=== PATIENT | female | born 1970 | race Caucasian/White ===

== ENCOUNTER 2017-07-31 14:20 | Observation (INO) | payer BC ==
[~2017-07-31] VITALS: Ht 160 cm; Wt 87.6 kg
[~2017-07-31 14:20] MED LIST: ACYCLOVIR200 MG PO; ALEVE220 M1 PO; AMITRIPTYLINE H10 MG PO; AMITRIPTYLINE H50 MG PO; ASPIRIN81 MG PO; Asmanex INH; BUPROPION HCL100 MG PO; CEFDINIR300 MG PO; CHANTIX PO; DOXYCYCLINE HY100 MG PO; ELAVIL PO; ESTRACE1 MG PO; FARXIGA PO; FLOVENT HFA12 GM INH; FUROSEMIDE40 MG PO; LASIX40 MG PO; LEVAQUIN500 MG PO; LYRICA100 MG PO; LYRICA200 MG PO; LYRICA50 MG PO; METAXALONE800 MG PO; METOPROLOL SUCC25 MG PO; METOPROLOL TART50 MG PO; MONTELUKAST SOD10 MG PO; MULTI-VITAMIN1 EACH PO; MYCOPHENOLATE500 MG PO; NEURONTIN100 MG PO; NEURONTIN400 MG PO; NEXIUM40 MG PO; NORCO 10-325 T1 EACH PO; PHENERGAN SUPP25 MG PO; PHENERGAN SUPP25 MG RC; POTASSIUM CHLO20 ME1 PO; PREDNISONE20 MG PO; PRILOSEC40 MG PO; PROAIR HFA INH8.5 GM INH; QUESTRAN PACKET4 GM PO; RANITIDINE HCL150 M1 PO; REGLAN10 MG PO; SINGULAIR10 MG PO; SKELAXIN800 MG PO; SOMA350 MG PO; SPIRIVA18 MCG INH; SPIRONOLACTONE25 MG PO; SYMBICORT 16010.2 GM INH; TYLENOL WITH C1 EAC1 PO; VALIUM10 MG PO; VANCOMYCIN HCL500 MG PO; ZOFRAN8 MG PO; [UNRECOGNIZED DRUG - OTHER] IV
[2017-07-31] MEDS ORDERED: PANTOPRAZOLE SO40 MG PO (14:45)
[2017-07-31] MEDS ORDERED: NORCO 10-325 T1 EACH PO (14:45)
[2017-07-31] MEDS ORDERED: RANITIDINE HCL300 M1 PO (14:45)
[2017-07-31] MEDS ORDERED: SODIUM CHLORIDE 0.9% 1000ML 1,000 ML IV STA (14:52)
[2017-07-31 15:05] LABS: BASOPHILS # (AUTO) 0.1 (0.0-0.1); BASOPHILS % 0.4 % (0.0-1.0); EOSINOPHILS # (AUTO) 0.2 (0.0-0.4); EOSINOPHILS % 0.9 % (0.0-6.0); HEMATOCRIT 37.3 % (34.2-44.1); LYMPHOCYTES % 17.5 % (18.0-39.1); MEAN CORPUSCULAR HGB CONC 32.2 g/dL (31-35); MEAN CORPUSCULAR VOLUME 83.8 fL (81-99); MONOCYTES # (AUTO) 1.4 (0.2-0.8); MONOCYTES % 8.2 % (4.4-11.3); NEUTROPHILS # (AUTO) 12.2 (2.1-6.9); NEUTROPHILS % 72.2 % (38.7-80.0); PLATELET COUNT 408 x10e3/uL (140-360); RED BLOOD COUNT 4.45 x10e6/uL (3.6-5.1); RED CELL DISTRIBUTION WIDTH 17.8 % (11.7-14.4)
[2017-07-31 15:25] LABS: ALANINE AMINOTRANSFERASE 11 IU/L (0-55); ALBUMIN/GLOBULIN RATIO 0.7 (0.8-2.0); ALKALINE PHOSPHATASE 138 IU/L (40-150); ANION GAP 15.3 mmol/L (8-16); BLOOD UREA NITROGEN 6 mg/dL (7-26); BUN/CREATININE RATIO 7 (6-25); CALCIUM 8.7 mg/dL (8.4-10.2); CARBON DIOXIDE 18 mmol/L (22-29); CHLORIDE 109 mmol/L (98-107); CREATININE, SERUM 0.82 mg/dL (0.57-1.11); EST GLOMERULAR FILTRATION RATE > 60 ML/MIN (60-); GLUCOSE 89 mg/dL (74-118); POTASSIUM 3.3 mmol/L (3.5-5.1); SODIUM 139 mmol/L (136-145)
--- NOTE | 2017-07-31 15:49 | Diagnostic Imaging Report ---
PROCEDURE: X-RAY CHEST, TWO VIEWS COMPARISON: Chest x-ray 03/04/17, chest x-ray 06/01/15 INDICATIONS: COUGH X 4 WEEKS FINDINGS: LUNGS: Chain sutures in the right upper lobe are stable. No associated soft tissue mass. Right PICC line has been removed. No new findings in the left lung. PLEURA: No effusions or pneumothorax. HEART \T\ MEDIASTINUM: The cardiomediastinal silhouette is normal. No hilar lymphadenopathy. Calcified hilar lymph nodes are stable BONES \T\ SOFT TISSUES: No focal osseous lesions. The soft tissues are unremarkable. CONCLUSION: Stable chest. No active disease. Dictated by: Mp Cho M.D. on 07/31/2017 at 15:58 Electronically approved by: Mp Cho M.D. on 07/31/2017 at 15:58
[2017-07-31] MEDS ORDERED: SODIUM CHLORIDE FLUSH 10 ML SYR INJ PRN (16:15)
[2017-07-31 16:39] LABS: STREPTOCOCCUS GRP A ANTIGEN NEGATIVE (NEGATIVE)
[2017-07-31] MEDS: VANCOMYCIN 1GM/NS 250 ML 250 ML IV SCH (16:49)
[2017-07-31] MEDS: HYDROMORPHONE 2MG/ML INJ IV PRN ×3 (16:49→23:10)
[2017-07-31] MEDS: ONDANSETRON HCL INJ 2 MG/ML VIAL IV PRN ×2 (16:50→23:10)
[2017-07-31 16:51] LABS: INFLUENZAE A&B ANTIGEN (RAPID) NEGATIVE (NEGATIVE)
[2017-07-31 17:55] VITALS: BP 110/59
[2017-07-31 18:12] VITALS: BP 110/59
[2017-07-31] MEDS: OFLOXACIN 0.3% (OTIC SOL) 5 ML BTL OT SCH (18:23)
[2017-07-31 20:15] VITALS: BP 104/58
[2017-07-31] MEDS ORDERED: NON-FORMULARY MEDICATION (Ondansetron Hcl (Zofran) 8 MG) PO PRN (20:30)
[2017-07-31] MEDS ORDERED: ALBUTEROL SULFATE HFA 8GM INHALATION AEROSOL INH PRN (20:30)
[2017-07-31] MEDS ORDERED: HYDROCODONE/APAP 10MG-325MG TAB PO PRN (20:30)
[2017-07-31] MEDS ORDERED: ONDANSETRON HCL 4 MG ORAL DISINTEGRATING TAB PO PRN ×2 (20:45)
--- NOTE | 2017-07-31 20:46 | Diagnostic Imaging Report ---
History:Pressure in mastoids, fever. Comparison studies:None Technique: Axial, coronal and sagittal images through the temporal bones. Intravenous contrast: None Findings: Right: External auditory canal: Clear and patent Tympanic membrane: Barely visualized and unremarkable. Middle ear and mastoid cavities: Clear. Mastoid air cells: Mild mucosal thickening and partial opacification. Ossicles: The malleus, incus and stapes are grossly intact. Cochlea, vestibule, internal acoustic canals: Grossly intact. Semicircular canals: Grossly intact. Not dehiscent. Endolymphatic duct: Normal in size. No dilated. Petrous apex: Unremarkable, not aerated. Facial canal: No abnormalities in the labyrinthine, tympanic or mastoid segments. Left: External auditory canal: Clear and patent Tympanic membrane: Barely visualized and unremarkable. Middle ear and mastoid cavities: Clear. Mastoid air cells: Mild mucosal thickening and partial opacification Ossicles: The malleus, incus and stapes are grossly intact. Cochlea, vestibule, internal acoustic canals: Grossly intact. Semicircular canals: Grossly intact. Not dehiscent. Endolymphatic duct: Normal in size. No dilated. Petrous apex: Unremarkable, not aerated. Facial canal: No abnormalities in the labyrinthine, tympanic or mastoid segments. IMPRESSION: Right temporal bone: 1. Mild nonspecific mastoid air cells inflammatory changes. Left temporal bone: 1. Mild nonspecific mastoid air cells inflammatory changes Signed by: DR Donta Soto M.D. on 07/31/2017 8:43 PM
[2017-07-31] MEDS ORDERED: FAMOTIDINE 20 MG TAB PO SCH (21:00)
[2017-07-31] MEDS ORDERED: GABAPENTIN 100 MG CAP PO SCH (21:00)
[2017-07-31] MEDS ORDERED: NON-FORMULARY MEDICATION (Ranitidine Hcl 300 MG) PO SCH (21:00)
[2017-07-31] MEDS ORDERED: METAXALONE 800 MG TAB PO SCH (21:00)
[2017-07-31] MEDS: DIAZEPAM 5 MG TAB PO SCH (21:43)
[2017-07-31] MEDS: GABAPENTIN 400 MG CAP PO SCH (21:43)
[2017-07-31] MEDS: METHOCARBAMOL 750 MG TAB PO SCH (21:43)
[2017-07-31] MEDS: METOCLOPRAMIDE HCL 10 MG TAB PO SCH (21:43)
[2017-07-31] MEDS: SIMETHICONE 80 MG CHEW PO PRN (21:57)
[2017-07-31] MEDS ORDERED: NON-FORMULARY MEDICATION (Diazepam (Valium) 10 MG) PO SCH (22:00)
[2017-07-31 23:47] VITALS: BP 104/58
--- NOTE | 2017-08-01 00:53 | Consultation ---
DATE OF CONSULTATION: July 31, 2017 DATE OF : 1970 HISTORY OF PRESENT ILLNESS: I was kindly asked to see this 47-year-old woman known to me from previous inpatient and outpatient evaluation and treatment for evaluation of a 7-day history of bilateral ear pain. She reports 1 week ago, she developed left-sided bloody ear drainage and has bilateral ear pressure with sensation of fullness in her ears, as well as a sensation of swelling in her neck. She has a long history of previous otologic symptoms and her degree of symptoms in the past has been persistently out of proportion to the degree of pathology identified. 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 She denies nasal airway obstruction or facial pain or pressure at this time. Reports her primary symptoms of bilateral ear fullness and intermittent drainage from her left ear. PAST MEDICAL AND PAST SURGICAL HISTORY: Reviewed in the chart. PHYSICAL EXAMINATION: Right ear, the pinna is normal. There is no postauricular pain, swelling or tenderness. The external auditory canal was normal. The tympanic membrane is moderately scarred and moderately retracted and hypomobile. The left pinna is normal. The left postauricular area has no pain, swelling or tenderness. The external auditory canal has a superficial abrasion in the midportion of the canal. The tympanic membrane is scarred, mildly retracted, and hypomobile. Nasal examination shows normal nasal mucosa. The nasal septum is midline. Pharyngeal examination shows slight edema of the uvula and minimal postnasal drainage. There is no palpable cervical adenopathy. ASSESSMENT 1. Otalgia. 2. Chronic allergic rhinosinusitis. 3. Immunodeficiency. PLAN 1. CT scan of the temporal bone without contrast. 2. Topical therapy for the left ear. 3. Intranasal steroids. Job#: [id number] CQ
[2017-08-01] MEDS: HYDROMORPHONE 2MG/ML INJ IV PRN ×5 (02:30→15:22)
[2017-08-01 04:00] VITALS: BP 119/66
--- NOTE | 2017-08-01 05:00 | History and Physical ---
CHIEF COMPLAINT: Significant ear pain, immunosuppressed state. HISTORY: Mrs. Gasca is a pleasant 47-year-old female with significant ear pain. Patient well known to me. She is on immunosuppression medications times 2 for her chronic lung disease. Patient has been having multiple blood work recently in the clinic where she has leukocytosis. Due to leukocytosis and her history of C. difficile colitis, we are being cautious. We stopped mycophenolate 2 weeks ago. Prednisone was allowed to be restarted during the last week. Patient cites 7 days of worsening bilateral ear pain. She went to visit an outside doctor where leukocytosis was noted. She was recommended to go directly to the emergency room. Patient with additional immunodeficiency with IgG subclass abnormality. PAST MEDICAL HISTORY: Pathologic desquamative interstitial pneumonitis, history of uterine cancer in 2015, status post treatment, hypertension, in 1995 DVT, anxiety, chronic allergic rhinosinusitis, GERD, hyperlipidemia, gastroparesis. PAST SURGICAL HISTORY: Lithotripsy, cholecystectomy, appendectomy, tonsillectomy, adenoidectomy, surgical lung biopsy. MEDICATIONS: List reviewed per electronic record. ALLERGIES: LEVAQUIN, PENICILLIN, NSAIDS, IODINE. FAMILY HISTORY: Noncontributory to this condition. SOCIAL HISTORY: with no children. No alcohol. No drugs. No active smoking. She quit smoking in 2014. REVIEW OF SYSTEMS GENERAL: There is no weight changes. OPHTHALMOLOGIC: No double vision. HEENT: There is some exudate coming out of her left ear. ENDOCRINE: No thyroid disease. PULMONARY: No blood in her cough. CARDIAC: No heart attacks. GI: No constipation. : No blood in the urine. DERMATOLOGIC: No rash. NEUROLOGIC: No seizures. PHYSICAL EXAMINATION VITALS: Afebrile. Vital signs noted per electronic record. GENERAL: Weak in bed and slightly pale. HEENT: Normocephalic and atraumatic. NECK: Supple. Throat midline. LUNGS: Bilateral air entry. Few rare crackles. CARDIOVASCULAR: S1 and S2. No murmurs, rubs or gallops. ABDOMEN: Soft and nontender. EXTREMITIES: No clubbing. No cyanosis. There is no edema. INTEGUMENT: No rash. No purpura. LABS: White count 17, hematocrit 37 and platelets 408,000. Potassium 2.8, bicarbonate 18, creatinine 0.8. Albumin 3, globulin 4.1. Chest x-ray with clear lungs. CT of the ear showed bilateral inflammation of mastoids. IMPRESSION AND PLAN 1. Severe right otalgia and left otalgia. 2. Chronic allergic rhinosinusitis. 3. Leukocytosis, not otherwise specified. 4. 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 5. Pathologic desquamative interstitial pneumonitis. 6. Former smoker. 7. Hypertension. 8. History of deep venous thrombosis in 1995. At this time, will continue close followup. Patient will have sinus CT done. ENT consult made. We appreciate ENT's interventions. Patient will have close followup with initial antibiotics. Will decide if we can restart her immunosuppression agents. Of note, the outside CT of chest was recently worsening. Therefore, we still need to expedite the resumption of medicines when improved state. White count will continue to be followed. Check ESR and CRP for baseline. Continue follow up of allergic condition with Dr. Kimball of ENT. Job#: [id number] MD
[2017-08-01] MEDS: VANCOMYCIN 1GM/NS 250 ML 250 ML IV SCH (05:43)
[2017-08-01] MEDS: DIAZEPAM 5 MG TAB PO SCH ×2 (06:00→13:08)
--- NOTE | 2017-08-01 06:18 | Discharge Summary ---
DAHIANA SANCHEZ, LENGTH 0:3 JEFF HARRELL MD Job#: [id number] RI
[2017-08-01] MEDS: METHOCARBAMOL 750 MG TAB PO SCH ×2 (06:20→13:08)
[2017-08-01 08:35] VITALS: BP 107/68
[2017-08-01] MEDS: METOCLOPRAMIDE HCL 10 MG TAB PO SCH ×2 (08:41→14:15)
[2017-08-01] MEDS: OFLOXACIN 0.3% (OTIC SOL) 5 ML BTL OT SCH (08:41)
[2017-08-01] MEDS: GABAPENTIN 400 MG CAP PO SCH ×2 (08:41→14:15)
[2017-08-01] MEDS: ONDANSETRON HCL INJ 2 MG/ML VIAL IV PRN ×2 (08:42→15:22)
[2017-08-01] MEDS ORDERED: POTASSIUM CHLORIDE 20 MEQ TAB CR PO SCH (09:00)
[2017-08-01] MEDS ORDERED: PREGABALIN 75 MG CAP PO SCH (09:00)
[2017-08-01] MEDS ORDERED: FARXIGA 5 MG PO SCH ×2 (09:00)
[2017-08-01] MEDS ORDERED: METOPROLOL SUCCINATE 25 MG TAB XL PO SCH (09:00)
[2017-08-01] MEDS ORDERED: PANTOPRAZOLE SOD 40 MG TABEC PO SCH (09:00)
[2017-08-01] MEDS ORDERED: PREGABALIN 50 MG CAP PO SCH (09:00)
[2017-08-01] MEDS ORDERED: FLUTICASONE PROPIONATE 110MCG INH INH SCH (09:00)
[2017-08-01] MEDS: SIMETHICONE 80 MG CHEW PO PRN (09:20)
[2017-08-01 12:15] VITALS: BP 108/57
[2017-08-01] MEDS ORDERED: PREDNISONE20 MG PO (15:26)
[2017-08-01] MEDS ORDERED: OFLOXACIN 0.3% OT (15:26)
[2017-08-01 16:00] VITALS: BP 106/57
--- NOTE | 2017-08-02 09:48 | Discharge Summary ---
PRIMARY DIAGNOSIS: Severe otalgia. SECONDARY DIAGNOSES: Include 1. Chronic allergic rhinosinusitis. 2. Immunodeficiency with IgG subset deficiency. 3. Immunodeficiency due to coag medicines. 4. Pathologic desquamative interstitial pneumonitis on immunosuppression. 5. History of Clostridium difficile colitis, not recent. 6. History of uterine cancer 2016. 7. Hypertension. 8. Anxiety. 9. 1996 deep vein thrombosis. 10. Gastroesophageal reflux disease. 11. Hyperlipidemia. 12. Gastroparesis. Patient known to be immunosuppressed. She developed severe ear pains, mostly on the right side. Patient was initiated on treatment as possible infection in an immunosuppressed individual. She was sent to the emergency room where she came. Ear CT showed bilateral inflammation of mastoids but probably still mild. Patient continued on initial antibiotics. White count was 17,000. After observation, there was no high clinical appearance of a severe infection; so, we allowed the patient to go home on day number 2. She is well known to me, and she knows what kind of cautions she must maintain and how to contact my office. I notified her to restart the prednisone and mycophenolate due to her worsening lung disease per the recent CAT scan. Of note, patient as an outpatient had her mycophenolate stopped for a few months for some unknown reason to me, but she had restarted it. Unfortunately, the CAT scan showed some relapse of her DIP. Therefore, we have to push the immunosuppressants as she has little reserve and she is already on home oxygen at her age of 47. ACTIVITY: As tolerated. DIET: Low-salt diet. FOLLOWUP: Follow up with Dr. Curran, Dr. Kimball, Dr. Banda, other physicians. DISCHARGE MEDICATIONS: Please see the discharge medication record for details. Greater than 30 minutes spent on discharging the patient. JEFF CURRAN MD Job#: [id number] TINO
== END 2017-08-01 15:52 | disposition home or self-care (01) ==
LOC: ER 14:20 → IMCU 17:11
PROVIDERS: ADMIT Internal Medicine Critical Care Medicine; ATTEND Internal Medicine Critical Care Medicine
DX: H92.03 Otalgia, bilateral (principal); J20.9 Acute bronchitis, unspecified; J30.9 Allergic rhinitis, unspecified; D72.829 Elevated white blood cell count, unspecified; D80.3 Selective deficiency of immunoglobulin G [IgG] subclasses; Z87.891 Personal history of nicotine dependence; I10 Essential (primary) hypertension; Z86.718 Personal history of other venous thrombosis and embolism; J84.89 Other specified interstitial pulmonary diseases; K21.9 Gastro-esophageal reflux disease without esophagitis; K31.84 Gastroparesis; E78.5 Hyperlipidemia, unspecified; Z99.81 Dependence on supplemental oxygen; Z79.52 Long term (current) use of systemic steroids
CPT/HCPCS: 36415 ×2; 70480; 71020; 80053; 82948 ×2; 83518; 85025; 87040; 87070; 87400; 93005; 94640; 99284; G0378 ×2; J1170 ×2; J2405 ×2; J3370 ×2; J7030

== ENCOUNTER → 2017-09-09 | Day surgery (SDC) | payer BC ==
[2017-09-08 15:30] LABS: BASOPHILS % 0.2 % (0.0-1.0); EOSINOPHILS % 0.2 % (0.0-6.0); HEMATOCRIT 39.7 % (34.2-44.1); HEMOGLOBIN 12.4 g/dL (12.0-16.0); LYMPHOCYTES # (AUTO) 1.5 (1.0-3.2); LYMPHOCYTES % 10.8 % (18.0-39.1); MEAN CORPUSCULAR HEMOGLOBIN 26.7 pg (28-32); MEAN CORPUSCULAR HGB CONC 31.2 g/dL (31-35); MEAN CORPUSCULAR VOLUME 85.6 fL (81-99); MONOCYTES # (AUTO) 0.2 (0.2-0.8); MONOCYTES % 1.7 % (4.4-11.3); NEUTROPHILS # (AUTO) 11.9 (2.1-6.9); PLATELET COUNT 469 x10e3/uL (140-360); RED BLOOD COUNT 4.64 x10e6/uL (3.6-5.1); RED CELL DISTRIBUTION WIDTH 16.7 % (11.7-14.4)
--- NOTE | 2017-09-08 16:03 | Diagnostic Imaging Report ---
PROCEDURE: Frontal and lateral views of the chest. COMPARISON: Patients [facility], , CHEST 2 VIEWS, 07/31/2017, 13:16. INDICATIONS: PRE OP FINDINGS: Lines/tubes: None. Lungs: Chain sutures again observed in the right upper lobe. There is no evidence of pneumonia or pulmonary edema. Pleura: There is no pleural effusion or pneumothorax. Heart and mediastinum: The heart and the mediastinum are normal. Bones: No acute bony abnormality. IMPRESSION: 1. No acute cardiopulmonary disease. Tavares Schwartz M.D. Dictated by: Tavares Schwartz M.D. on 09/08/2017 at 16:12 Electronically approved by: Tavares Schwartz M.D. on 09/08/2017 at 16:12
[~2017-09-09] MED LIST changes: +ALBUTEROL0.63 MG/3 INH; +BOTULINUM TOXIN TYPE A 100 UNIT VIAL IM ONE; +FENTANYL CITRATE/PF 100MCG/2 ML INJ ONE; +LIDOCAINE HCL 2% LOCAL INJ 5 ML SDV VIAL INJ ONE; +MIDAZOLAM HCL 2 MG/2 ML VIAL ONE; +OFLOXACIN 0.3% OT; +PANTOPRAZOLE SO40 MG PO; +PROPOFOL IV EMULSION 10 MG/ML 20 ML VIAL ONE; +RANITIDINE HCL300 M1 PO
--- OUTSIDE RECORDS SUMMARY | 2017-09-09 06:03 | XMS REPORT ---
Author Author [facility] Address Unknown Phone Unavailable Care Team Providers Care Application Specialist Name Role Phone MEKA WHITNEY Unavailable Unavailable SHARRIJEFF Landis Unavailable Unavailable Problems This patient has no known problems. Allergies, Adverse Reactions, Alerts This patient has no known allergies or adverse reactions. Medications This patient has no known medications. Results Test Description Test Time Test Comments Text Results Atomic Results Result Comments CHEST 2 VIEWS [place] [address] Patient Name: GREER CULLEN MR #: [id number] : 1970 Age/Sex: 47/F Req # : [id number] Adm Physician: Ordered by: MEKA WHITNEY MD Report #: [id number] Location: OR Room/Bed: Procedure: [id number] DX/CHEST 2 VIEWS Exam Date: 09/08/17 Exam Time : 1514 REPORT STATUS: Signed PROCEDURE: Frontal and lateral views of the chest. COMPARISON: [facility], , CHEST 2 VIEWS, 2017, 13:16. INDICATIONS: PRE OP FINDINGS: Lines/tubes: None. Lungs: Chain sutures again observed in the right upper lobe. There is no evidence of pneumonia or pulmonary edema. Pleura: There is no pleural effusion or pneumothorax. Heart and mediastinum: The heart and the mediastinum are normal. Bones: No acute bony abnormality. IMPRESSION: 1. No acute cardiopulmonary disease. L. Oscar Frigini, M.D. Dictated by: Tavares Pitts M.D. on 09/08/2017 at 16: 12 Electronically approved by: Tavares Pitts M.D. on 09/08/2017 at 16:12 Dictated By: NATE PITTS MD, MD 161 Transcribed By: OLU on 09/08 161 COPY TO: MEKA WHITNEY MD CT IACS WO [place] [address] Patient Name: GREER CULLEN MR #: [id number] : 1970 Age/Sex: 47/F Req # : [id number] Adm Physician: JEFF HARRELL MD Ordered by: KATI HUTCHISON, JIM HUTCHISON Report #: [id number] Location: [facility] Room/Bed: [place] [address] Procedure: [id number] CT/CT IACS WO Exam Date: 07/31/17 Exam Time: 1920 REPORT STATUS: Signed History: Pressure in mastoids, fever. Comparison studies:None Technique: Axial , coronal and sagittal images through the temporal bones. Intravenous contrast : None Findings: Right: External auditory canal: Clear and patent Tympanic membrane: Barely visualized and unremarkable. Middle ear and mastoid cavities: Clear. Mastoid air cells: Mild mucosal thickening and partial opacification. Ossicles: The malleus, incus and stapes are grossly intact. Cochlea, vestibule, internal acoustic canals: Grossly intact. Semicircular canals: Grossly intact. Not dehiscent. Endolymphatic duct: Normal in size. No dilated. Petrous apex: Unremarkable, not aerated. Facial canal: No abnormalities in the labyrinthine, tympanic or mastoid segments. Left: External auditory canal: Clear and patent Tympanic membrane: Barely visualized and unremarkable. Middle ear and mastoid cavities: Clear. Mastoid air cells: Mild mucosal thickening and partial opacification Ossicles : The malleus, incus and stapes are grossly intact. Cochlea, vestibule, internal acoustic canals: Grossly intact. Semicircular canals: Grossly intact. Not dehiscent. Endolymphatic duct: Normal in size. No dilated. Petrous apex: Unremarkable, not aerated. Facial canal: No abnormalities in the labyrinthine, tympanic or mastoid segments. IMPRESSION: Right temporal bone: 1. Mild nonspecific mastoid air cells inflammatory changes. Left temporal bone: 1. Mild nonspecific mastoid air cells inflammatory changes Signed by: DR Donta Soto M.D. on 07/31/2017 8:43 PM Dictated By: DONTA KNIGHT MD 42 Transcribed By: RICK on 2042 COPY TO: JIM PARIKH CHEST 2 VIEWS [place] [address] Patient Name: GREER CULLEN MR #: [id number] : 1970 Age/Sex: 47/F Req # : [id number] Adm Physician: Ordered by: PETER BERGER MD Report #: [id number] Location: ER Room/Bed: Procedure: [id number] DX/CHEST 2 VIEWS Exam Date: 07/31/17 Exam Time: 1535 REPORT STATUS: Signed PROCEDURE: X-RAY CHEST, TWO VIEWS COMPARISON: Chest x-ray 03/04/17, chest x-ray 06/01/15 INDICATIONS: COUGH X 4 WEEKS FINDINGS: LUNGS: Chain sutures in the right upper lobe are stable. No associated soft tissue mass. Right PICC line has been removed. No new findings in the left lung. PLEURA: No effusions or pneumothorax. HEART T MEDIASTINUM: The cardiomediastinal silhouette is normal. No hilar lymphadenopathy. Calcified hilar lymph nodes are stable BONES T SOFT TISSUES: No focal osseous lesions. The soft tissues are unremarkable. CONCLUSION: Stable chest. No active disease. Dictated by: Jennifer Cho M.D. on 07/31/2017 at 15:58 Electronically approved by: Jennifer Cho M.D. on 07/31/2017 at 15:58 Dictated By: JENNIFER CHO MD 1558 Transcribed By: OLU on 07/31/17 3053 COPY TO: PETER BERGER MD
== END | disposition home or self-care (01) ==
LOC: OR 06:00
PROVIDERS: ATTEND Internal Medicine Gastroenterology
DX: K31.84 Gastroparesis (principal); K27.9 Peptic ulcer, site unspecified, unspecified as acute or chronic, without hemorrhage or perforation; K44.9 Diaphragmatic hernia without obstruction or gangrene; K21.9 Gastro-esophageal reflux disease without esophagitis; K59.00 Constipation, unspecified; J44.9 Chronic obstructive pulmonary disease, unspecified; E11.9 Type 2 diabetes mellitus without complications; I10 Essential (primary) hypertension; R00.0 Tachycardia, unspecified; E66.9 Obesity, unspecified; G47.33 Obstructive sleep apnea (adult) (pediatric); F41.9 Anxiety disorder, unspecified; Z01.810 Encounter for preprocedural cardiovascular examination; Z01.812 Encounter for preprocedural laboratory examination; Z01.818 Encounter for other preprocedural examination; Z99.81 Dependence on supplemental oxygen; Z68.35 Body mass index [BMI] 35.0-35.9, adult; Z85.42 Personal history of malignant neoplasm of other parts of uterus; Z87.440 Personal history of urinary (tract) infections; Z87.442 Personal history of urinary calculi; Z87.891 Personal history of nicotine dependence; Z80.0 Family history of malignant neoplasm of digestive organs
CPT/HCPCS: 36415 ×2; 43236; 71046; 82948; 85025; 93005; J0587; J2001; J2250; 43239

== ENCOUNTER 2018-01-13 08:50 | Emergency (ER) | payer MEDICARE ==
[~2018-01-13] VITALS: Ht 160 cm; Wt 87.5 kg
[~2018-01-13 08:50] MED LIST changes: -BOTULINUM TOXIN TYPE A 100 UNIT VIAL IM ONE; -FENTANYL CITRATE/PF 100MCG/2 ML INJ ONE; -LIDOCAINE HCL 2% LOCAL INJ 5 ML SDV VIAL INJ ONE; -MIDAZOLAM HCL 2 MG/2 ML VIAL ONE; -PROPOFOL IV EMULSION 10 MG/ML 20 ML VIAL ONE
[2018-01-13] MEDS ORDERED: ONDANSETRON HCL INJ 2 MG/ML VIAL IV STA (09:56)
[2018-01-13] MEDS ORDERED: MORPHINE SULFATE 4 MG/ML SYR IV STA (09:56)
[2018-01-13] MEDS ORDERED: SODIUM CHLORIDE 0.9% 500ML 500 ML IV STA (09:56)
[2018-01-13 10:06] LABS: BASOPHILS # (AUTO) 0.1 (0.0-0.1); BASOPHILS % 0.4 % (0.0-1.0); EOSINOPHILS # (AUTO) 0.1 (0.0-0.4); EOSINOPHILS % 0.4 % (0.0-6.0); HEMATOCRIT 35.1 % (34.2-44.1); HEMOGLOBIN 10.9 g/dL (12.0-16.0); LYMPHOCYTES # (AUTO) 2.7 (1.0-3.2); MEAN CORPUSCULAR HEMOGLOBIN 26.2 pg (28-32); MEAN CORPUSCULAR HGB CONC 31.1 g/dL (31-35); MEAN CORPUSCULAR VOLUME 84.4 fL (81-99); MONOCYTES # (AUTO) 0.8 (0.2-0.8); MONOCYTES % 6.8 % (4.4-11.3); NEUTROPHILS # (AUTO) 8.1 (2.1-6.9); NEUTROPHILS % 68.3 % (38.7-80.0); PLATELET COUNT 379 x10e3/uL (140-360); RED BLOOD COUNT 4.16 x10e6/uL (3.6-5.1); RED CELL DISTRIBUTION WIDTH 17.7 % (11.7-14.4)
[2018-01-13] MEDS ORDERED: MORPHINE SULFATE 2 MG/ML SYR IV NR (10:15)
[2018-01-13 10:17] LABS: ALANINE AMINOTRANSFERASE 15 IU/L (0-55); ALBUMIN 2.8 g/dL (3.5-5.0); ALBUMIN/GLOBULIN RATIO 0.8 (0.8-2.0); ALKALINE PHOSPHATASE 126 IU/L (40-150); ANION GAP 12.6 mmol/L (8-16); BLOOD UREA NITROGEN < 5 mg/dL (7-26); CALCIUM 8.8 mg/dL (8.4-10.2); CARBON DIOXIDE 21 mmol/L (22-29); CHLORIDE 112 mmol/L (98-107); CREATININE, SERUM 0.69 mg/dL (0.57-1.11); EST GLOMERULAR FILTRATION RATE > 60 ML/MIN (60-); GLUCOSE 109 mg/dL (74-118); POTASSIUM 3.6 mmol/L (3.5-5.1); SODIUM 142 mmol/L (136-145)
[2018-01-13 10:18] LABS: BUN/CREATININE RATIO 7 (6-25)
[2018-01-13 10:19] LABS: BILIRUBIN,URINE NEGATIVE (NEGATIVE); CLARITY,URINE SL CLOUDY (CLEAR); COLOR,URINE YELLOW (YELLOW); KETONES,URINE NEGATIVE (NEGATIVE); LEUKOCYTE ESTERASE ,URINE NEGATIVE (NEGATIVE); NITRITE,URINE NEGATIVE (NEGATIVE); PROTEIN,URINE DIPSTICK TRACE (NEGATIVE); URINE UROBILINOGEN 0.2 mg/dL (0.2 - 1)
[2018-01-13 10:35] LABS: BACTERIA,URINE RARE /HPF; EPITHELIAL CELLS,URINE RARE /LPF; HYALINE CASTS 0-1 (0-1)
[2018-01-13] MEDS ORDERED: CLINDAMYCIN 600MG/D5W 50ML 50 ML IV ONE (11:15)
[2018-01-13] MEDS ORDERED: KETOROLAC TROMETHAMINE 30 MG/ML VIAL IV STA (12:05)
[2018-01-13 12:26] VITALS: BP 103/70
== END 2018-01-13 12:35 | disposition home or self-care (01) ==
LOC: ER 08:50
DX: L03.311 Cellulitis of abdominal wall (principal)
CPT/HCPCS: 36415; 80053; 81001; 83605; 85025; 87040; 99283; J2270; J2405

== ENCOUNTER 2018-02-12 10:04 | Observation (INO) | payer BC, MEDICARE ==
[~2018-02-12] VITALS: Ht 160 cm; Wt 89.8 kg
[2018-02-12] MEDS ORDERED: MORPHINE SULFATE INJ 4 MG/ML INJ IV STA (10:36)
[2018-02-12] MEDS ORDERED: ONDANSETRON HCL INJ 2 MG/ML VIAL IV STA (10:36)
[2018-02-12 10:58] LABS: BASOPHILS # (AUTO) 0.1 (0.0-0.1); BASOPHILS % 0.6 % (0.0-1.0); EOSINOPHILS # (AUTO) 0.3 (0.0-0.4); EOSINOPHILS % 2.4 % (0.0-6.0); HEMATOCRIT 33.8 % (34.2-44.1); HEMOGLOBIN 10.8 g/dL (12.0-16.0); LYMPHOCYTES # (AUTO) 3.4 (1.0-3.2); LYMPHOCYTES % 26.7 % (18.0-39.1); MEAN CORPUSCULAR HEMOGLOBIN 26.4 pg (28-32); MEAN CORPUSCULAR VOLUME 82.6 fL (81-99); MONOCYTES # (AUTO) 0.8 (0.2-0.8); MONOCYTES % 6.6 % (4.4-11.3); NEUTROPHILS % 63.3 % (38.7-80.0); PLATELET COUNT 355 x10e3/uL (140-360); RED BLOOD COUNT 4.09 x10e6/uL (3.6-5.1); RED CELL DISTRIBUTION WIDTH 17.7 % (11.7-14.4)
[2018-02-12 11:06] LABS: INR 1.09; PROTHROMBIN TIME 13.3 seconds (11.9-14.5)
[2018-02-12 11:07] LABS: PARTIAL THROMBOPLASTIN TIME 30.7 seconds (23.8-35.5)
[2018-02-12 11:14] LABS: ALANINE AMINOTRANSFERASE 14 IU/L (0-55); ALBUMIN 2.9 g/dL (3.5-5.0); ALBUMIN/GLOBULIN RATIO 0.9 (0.8-2.0); ALKALINE PHOSPHATASE 116 IU/L (40-150); ANION GAP 11.6 mmol/L (8-16); BLOOD UREA NITROGEN 6 mg/dL (7-26); BUN/CREATININE RATIO 8 (6-25); CALCIUM 8.8 mg/dL (8.4-10.2); CARBON DIOXIDE 25 mmol/L (22-29); CHLORIDE 106 mmol/L (98-107); CREATINE KINASE 33 IU/L (29-168); CREATININE, SERUM 0.73 mg/dL (0.57-1.11); EST GLOMERULAR FILTRATION RATE > 60 ML/MIN (60-); GLUCOSE 105 mg/dL (74-118); POTASSIUM 3.6 mmol/L (3.5-5.1); SODIUM 139 mmol/L (136-145)
--- NOTE | 2018-02-12 11:56 | Diagnostic Imaging Report ---
PROCEDURE: X-RAY CHEST, TWO VIEWS COMPARISON: Patients [facility], DX, CHEST 2 VIEWS, 09/08/2017, 15:41. INDICATIONS: CHEST PRESSURE, BILATERAL LEG SWELLING FINDINGS: LUNGS: No consolidations or edema. Right upper lobe sutures again identified. PLEURA: No effusions or pneumothorax. HEART \T\ MEDIASTINUM: The heart is within normal size-limits. BONES \T\ SOFT TISSUES: No acute findings. CONCLUSION: No acute thoracic abnormality. Joshua Baltazar D.O. Dictated by: Joshua Baltazar D.O. on 02/12/2018 at 12:00 Electronically approved by: Joshua Baltazar D.O. on 02/12/2018 at 12:00
[2018-02-12 12:09] LABS: BILIRUBIN,URINE NEGATIVE (NEGATIVE); CLARITY,URINE SL CLOUDY (CLEAR); COLOR,URINE YELLOW (YELLOW); KETONES,URINE NEGATIVE (NEGATIVE); LEUKOCYTE ESTERASE ,URINE NEGATIVE (NEGATIVE); NITRITE,URINE NEGATIVE (NEGATIVE); PROTEIN,URINE DIPSTICK NEGATIVE (NEGATIVE); URINE UROBILINOGEN 0.2 mg/dL (0.2 - 1)
[2018-02-12] MEDS ORDERED: ASPIRIN 81 MG CHEW TAB PO ONE (12:15)
[2018-02-12] MEDS ORDERED: ONDANSETRON HCL INJ 2 MG/ML VIAL IV PRN (12:15)
[2018-02-12] MEDS ORDERED: MORPHINE SULFATE 2 MG/ML SYR IV PRN (12:15)
[2018-02-12] MEDS ORDERED: SODIUM CHLORIDE FLUSH 10 ML SYR INJ PRN (12:15)
[2018-02-12 12:28] LABS: RBC,URINE 0-5 /HPF (0-5); WBC,URINE (MAN) 0-5 /HPF (0-5)
[2018-02-12 12:29] LABS: BACTERIA,URINE FEW /HPF; EPITHELIAL CELLS,URINE MODERATE /LPF
[2018-02-12] MEDS: HYDROMORPHONE 1MG/1ML INJ IV PRN ×4 (13:01→22:44)
[2018-02-12 13:50] VITALS: BP 123/79
[2018-02-12 14:11] VITALS: BP 123/78
[2018-02-12] MEDS ORDERED: GABAPENTIN400 MG PO (14:44)
[2018-02-12] MEDS ORDERED: TRAZODONE HCL50 MG PO (14:46)
[2018-02-12] MEDS ORDERED: LISINOPRIL10 MG PO (14:46)
[2018-02-12] MEDS ORDERED: FUROSEMIDE40 MG PO (14:47)
[2018-02-12] MEDS ORDERED: PREDNISONE10 MG PO (14:49)
[2018-02-12] MEDS ORDERED: TIZANIDINE HCL4 MG PO (14:51)
[2018-02-12] MEDS ORDERED: METFORMIN HCL500 MG PO (14:56)
[2018-02-12] MEDS ORDERED: MONTELUKAST SOD10 MG PO (14:56)
[2018-02-12] MEDS ORDERED: BUPROPION HCL100 MG PO (14:56)
[2018-02-12] MEDS ORDERED: GLIPIZIDE5 MG PO (14:56)
[2018-02-12] MEDS ORDERED: NAC600 MG PO (14:59)
[2018-02-12] MEDS ORDERED: ZYVOX600 MG PO (14:59)
[2018-02-12] MEDS ORDERED: AMITRIPTYLINE H10 MG PO (15:02)
[2018-02-12 15:07] VITALS: BP 123/78
[2018-02-12 16:00] VITALS: BP 114/69
[2018-02-12 19:13] LABS: CREATINE KINASE MB 0.5 ng/mL (0-5.0)
[2018-02-12 19:40] VITALS: BP 124/76
[2018-02-12 20:14] VITALS: BP 124/76
[2018-02-13 00:15] VITALS: BP 112/72
[2018-02-13] MEDS: HYDROMORPHONE 1MG/1ML INJ IV PRN ×4 (01:55→16:07)
[2018-02-13 04:24] VITALS: BP 103/63
[2018-02-13 04:56] LABS: BASOPHILS % 0.4 % (0.0-1.0); EOSINOPHILS # (AUTO) 0.3 (0.0-0.4); EOSINOPHILS % 2.8 % (0.0-6.0); HEMATOCRIT 33.8 % (34.2-44.1); HEMOGLOBIN 10.1 g/dL (12.0-16.0); LYMPHOCYTES # (AUTO) 3.2 (1.0-3.2); LYMPHOCYTES % 31.2 % (18.0-39.1); MEAN CORPUSCULAR HGB CONC 29.9 g/dL (31-35); MEAN CORPUSCULAR VOLUME 87.1 fL (81-99); MONOCYTES # (AUTO) 0.8 (0.2-0.8); MONOCYTES % 7.9 % (4.4-11.3); NEUTROPHILS # (AUTO) 5.9 (2.1-6.9); NEUTROPHILS % 57.3 % (38.7-80.0); PLATELET COUNT 328 x10e3/uL (140-360); RED BLOOD COUNT 3.88 x10e6/uL (3.6-5.1); RED CELL DISTRIBUTION WIDTH 17.7 % (11.7-14.4)
[2018-02-13 05:15] LABS: ANION GAP 11.7 mmol/L (8-16); BLOOD UREA NITROGEN 6 mg/dL (7-26); BUN/CREATININE RATIO 8 (6-25); CALCIUM 8.6 mg/dL (8.4-10.2); CARBON DIOXIDE 25 mmol/L (22-29); CHLORIDE 107 mmol/L (98-107); CREATININE, SERUM 0.71 mg/dL (0.57-1.11); EST GLOMERULAR FILTRATION RATE > 60 ML/MIN (60-); GLUCOSE 100 mg/dL (74-118); POTASSIUM 3.7 mmol/L (3.5-5.1); SODIUM 140 mmol/L (136-145)
[2018-02-13 05:48] LABS: CREATINE KINASE 30 IU/L (29-168)
--- NOTE | 2018-02-13 06:30 | Diagnostic Imaging Report ---
CHEST SINGLE (PORTABLE), 02/13/2018 7:00 AM Technique: CHEST SINGLE (PORTABLE) Comparison: 02/12/2018 Clinical history: Chest pain Findings: See Impression Impression: 1. Stable cardiomediastinal silhouette. 2. No consolidation or edema. 3. No effusion or pneumothorax.. Signed by: Dr Helen Davila MD on 02/13/2018 6:27 AM
[2018-02-13 08:06] VITALS: BP 105/62
[2018-02-13] MEDS ORDERED: ASPIRIN 81 MG ENTERIC COATED PO SCH (09:00)
[2018-02-13 09:53] LABS: CHOL/HDL RATIO 5.5 (3.0-3.6)
[2018-02-13] MEDS ORDERED: PANTOPRAZOLE SOD 40 MG TABEC PO SCH (10:30)
[2018-02-13] MEDS ORDERED: LISINOPRIL 10 MG TAB PO SCH (10:30)
[2018-02-13] MEDS ORDERED: FUROSEMIDE 40 MG TAB PO SCH (10:30)
[2018-02-13] MEDS ORDERED: BUPROPION HCL 100 MG TAB PO SCH (10:30)
[2018-02-13] MEDS ORDERED: MYCOPHENOLATE MOFETIL 250 MG CAP PO SCH (10:30)
[2018-02-13] MEDS ORDERED: GABAPENTIN 400 MG CAP PO SCH ×2 (10:30→15:00)
[2018-02-13] MEDS ORDERED: PREGABALIN 50 MG CAP PO SCH (10:30)
[2018-02-13] MEDS: GLIPIZIDE 5 MG TAB PO SCH ×2 (11:06→16:33)
[2018-02-13 11:27] VITALS: BP 110/69
--- NOTE | 2018-02-13 13:19 | History and Physical ---
PRIMARY CARE PHYSICIAN: Dr. Yoder SHACKLER: Dr. Chambers CHIEF COMPLAINT: Chest pain. HISTORY OF PRESENT ILLNESS: This is a 47-year-old woman who developed substernal chest discomfort with minimal shortness of breath. She came to the hospital for further evaluation and management. Here cardiac enzymes were negative. She is admitted for further evaluation and management. PAST MEDICAL HISTORY: Acute gastroenteritis, C. difficile positive diarrhea in May 2016, uterine cancer in 2015, hypertension, right-sided DVT in 1995. Was on Coumadin and now on aspirin. BOOP, sepsis, chronic lung disease, hypokalemia, peripheral neuropathy, chronic pain syndrome, diabetes mellitus, type 2, diabetic neuropathy, lower abdominal ulcer. PAST SURGICAL HISTORY: Lithotripsy times 3, cholecystectomy, appendectomy, tonsillectomy and adenoidectomy, lung biopsy. ALLERGIES: PER ELECTRONIC MEDICAL RECORD. FAMILY HISTORY: Diabetes mellitus and hypertension, cancer, stroke, heart disease, heart attack, pancreatic cancer in her mother. SOCIAL HISTORY: Patient is . She has no children. No alcohol or illicits. She quit cigarettes in July 2015. MEDICATIONS: Per electronic medical record. REVIEW OF SYSTEMS: Denies any dizziness, fever, chills, sweats, nausea, vomiting, diarrhea, leg pain, back pain, headache, blurred vision. PHYSICAL EXAMINATION VITAL SIGNS: Have been reviewed. GENERAL: A tired-appearing woman resting in bed. HEENT: Anicteric. Pupils respond to light. No oral lesions. CARDIOVASCULAR: Normal S1 and S2. LUNGS: Moderate breath sounds. ABDOMEN: Soft, nontender and nondistended. She has an old ulcer site in the lower abdomen, which is healing well. EXTREMITIES: Shows minimal trace edema. SKIN: Dry. PSYCHIATRIC: Normal affect. NEUROLOGICAL: Alert and oriented times 3. Moving all extremities. LABS: Reviewed. MEDICATIONS: Reviewed. ASSESSMENT: This is a 47-year-old woman with: 1. Chest pain. 2. Obesity. 3. Diabetes mellitus, type 2. 4. Diabetic neuropathy. 5. Hypertension. 6. Gastroesophageal reflux disease. 7. Chronic pain syndrome. 8. History of bronchiolitis obliterans organizing pneumonia. 9. Chronic lung disease. PLAN 1. Cardiac enzymes negative. Will consult cardiology for evaluation. 2. Continue treatment of chronic pain syndrome. 3. Obtain lipid panel. 4. Treat GERD. 5. She remains on and for chronic lung disease/history of BOOP. 6. Use Lovenox 40 mg and PPI. 7. Disposition. Follow up cardiology recommendations. Obtain 2-D echocardiogram. Job#: [id number] RI
[2018-02-13] MEDS ORDERED: GABAPENTIN 100 MG CAP PO SCH (15:00)
[2018-02-13 15:27] VITALS: BP 114/81
--- NOTE | 2018-02-13 16:36 | Consultation ---
DATE OF CONSULTATION: February 13, 2018 CARDIAC CONSULTATION REASON FOR CONSULTATION: Chest pain. HISTORY: A very 47-year-old unfortunate lady who has multiple medical health problems. In the last couple of months or so, she had at least 2 admissions, one to here and one to [facility]. Apparently, she does have IgG deficiency, repeated skin infection, ear infections. She was with cellulitis recently. Her other problem includes obesity, diabetes mellitus, chronic pain syndrome, hypertension. She does have chronic COPD. She had lung biopsy and diagnosed BOOP. She is known also to have C. difficile in the past in May 2016. Patient came to this institution complaining of chest pain. Chest pain is very vague in characteristic. She is admitted. Her lab showed her cardiac enzymes to be normal. Her BNP is normal. Hemoglobin A1c at 5.5%. Her lipid profile are triglycerides 208, cholesterol 225, HDL of 41, LDL of 142. Cardiac consultation is obtained for the chest pain. She described her chest pain lower retrosternal with heaviness with shortness of breath. This pain subsided. Now, complaining of headache and aches all over her body. She does take several pain medications for her peripheral neuropathy. She is followed by Dr. Yodre. She is followed by Dr. Curran of pulmonary and GI. Patient currently pain free. She would like to go home to take care of her [id number] as her cannot take care of him by himself. She noted a little bit swelling of her feet. There is no orthopnea. No paroxysmal nocturnal dyspnea. She does have her usual shortness of breath. She does have occasional cough. There is no recent travel. There is no prior history of myocardial infarction, although she got right leg DVT when she had uterine cancer problem in 2016. She had lung biopsy for chronic lung symptoms and followed by Dr. Curran. REVIEW OF SYSTEMS: Was extensive to all systems. Will be summarized for clarity. GENERAL: Aches, pain, failure to thrive, but no weight loss. No weight gain. No fever. No chills. Recent admission with cellulitis. CARDIAC: As per acute illness. PULMONARY: As per acute illness. GI: Constipation, diarrhea, heartburn and gastroparesis. Recent GI bleed. : Increased frequency of urination. Incontinence and frequent urinary tract infection. MUSCULOSKELETAL: Aches and pains all over. NEUROLOGICAL: Severe peripheral neuropathy symptoms. Aches all over. Headaches. ENDOCRINE: She is diabetic. HEMATOLOGY: No easy bruising or bleeding. PAST MEDICAL HISTORY: Very lengthy list including uterine cancer in 2016 complicated by C. difficile colitis, as well as deep venous thrombosis. She has chronic lung disease. Lung biopsy with Dr. Kowalski and Dr. Archuleta and diagnosed with BOOP. Severe peripheral neuropathy, chronic pain syndrome, diabetes mellitus, severe diabetic neuropathy, low back pain, lithotripsy, kidney stone, cholecystectomy, appendectomy, tonsillectomy, adenoidectomy, lung biopsy. SOCIAL HISTORY: She is . She stopped smoking in July 2015. She is not an alcohol drinker. She does not have any children. FAMILY HISTORY: Father in his late 70s. No coronary artery disease. Mother in her 50s with sepsis. Two older sisters. No brothers. They are very healthy. No children. She had "6 miscarriages". PHYSICAL EXAMINATION VITALS: Overweight lady. Height of 5 feet 3 inches, weight of 198 pounds. Blood pressure 110/70, heart rate of 70, respiratory rate of 18. HEENT: Pupils are reactive. NECK: No elevation of jugular venous pulsation. No bruit. CHEST: Clear to auscultation and percussion. HEART: PMI in 5th left intercostal space. Normal 1st and 2nd heart sounds. ABDOMEN: Soft. EXTREMITIES: Mild feet edema. NEUROLOGIC: Awake, alert and oriented. No motor deficits. ALLERGIES: PENICILLIN AND NONSTEROIDAL ANTI-INFLAMMATORY DRUG, IODINE, AND SHE CANNOT TOLERATE ORAL STATIN. LABORATORY DATA: Serial cardiac enzymes are normal. BNP is normal. EKG showing normal sinus rhythm. Chest x-ray by report with no major abnormalities. Sodium 140, potassium 3.7, BUN 6, creatinine 0.7. Hemoglobin 10.1, hematocrit of 33%. Chest x-ray with no acute changes. IMPRESSION AND PLAN 1. Admission with chest pain. 2. Diabetes mellitus. 3. Severe peripheral neuropathy. 4. Chronic pain syndrome. 5. Hypertension. 6. Gastroesophageal reflux disease. 7. Chronic pain syndrome. 8. Chronic lung disease. 9. Status post lung biopsy and diagnosis with bronchiolitis obliterans organizing pneumonia. Patient is on aspirin and on beta zaid, which I would concur with, as well as lisinopril. Statin will be helpful mainly in view of her elevated cholesterol, but the patient told me she tried all statins and they give her "muscle aches and pain" and she was unable to tolerate that. From a cardiac point of view, will review the echocardiogram ordered. If patient stays in the hospital until Thursday, will go ahead and will do a stress test. If she cannot exercise, then will do a nuclear stress test. Differential diagnosis and care are discussed and explained. Patient's questions are answered. Job#: [id number] SURY
[2018-02-13] MEDS ORDERED: MYCOPHENOLATE MOFETIL 750 MG PO SCH (17:00)
[2018-02-13] MEDS ORDERED: ENOXAPARIN SOD INJ 40 MG/0.4 ML SYR SC SCH (17:00)
[2018-02-13] MEDS ORDERED: METOPROLOL SUCCINATE 25 MG TAB XL PO SCH (21:00)
[2018-02-13] MEDS ORDERED: MONTELUKAST SODIUM 10 MG TAB PO SCH (21:00)
[2018-02-13] MEDS ORDERED: AMITRIPTYLINE HCL 10 MG TAB PO SCH (21:00)
[2018-02-13] MEDS ORDERED: TRAZODONE HCL 50 MG TAB PO SCH (21:00)
[2018-02-13] MEDS ORDERED: TIZANIDINE HCL 4 MG TAB PO SCH (21:00)
== END 2018-02-13 18:41 | disposition home or self-care (01) ==
LOC: ER 10:04 → ERHOLD 12:26 → IMCU 14:08
PROVIDERS: ADMIT Internal Medicine; ATTEND Internal Medicine
DX: R07.9 Chest pain, unspecified (principal); E66.9 Obesity, unspecified; E11.42 Type 2 diabetes mellitus with diabetic polyneuropathy; I10 Essential (primary) hypertension; K21.9 Gastro-esophageal reflux disease without esophagitis; G89.4 Chronic pain syndrome; J98.4 Other disorders of lung; Z88.0 Allergy status to penicillin; Z88.8 Allergy status to other drugs, medicaments and biological substances; D80.3 Selective deficiency of immunoglobulin G [IgG] subclasses; J44.9 Chronic obstructive pulmonary disease, unspecified
CPT/HCPCS: 36415 ×2; 71045; 71046; 80048; 80053; 80061; 81001; 82550 ×2; 82553 ×2; 83036; 83880; 84484 ×2; 85025 ×2; 85610; 85730; 87040; 87071; 87205; 93005 ×2; 93306; 99284; G0378 ×2; J1170 ×2; J2270 ×2; J2405 ×2; S0164

== ENCOUNTER 2018-05-07 11:37 | Emergency (ER) | payer BC, MEDICARE ==
[~2018-05-07] VITALS: Ht 160 cm; Wt 89.8 kg
[~2018-05-07 11:37] MED LIST changes: +GABAPENTIN400 MG PO; +GLIPIZIDE5 MG PO; +LISINOPRIL10 MG PO; +METFORMIN HCL500 MG PO; +NAC600 MG PO; +PREDNISONE10 MG PO; +TIZANIDINE HCL4 MG PO; +TRAZODONE HCL50 MG PO; +ZYVOX600 MG PO
[2018-05-07] MEDS ORDERED: MORPHINE SULFATE INJ 4 MG/ML INJ IV STA ×3 (12:16→17:18)
[2018-05-07] MEDS ORDERED: ONDANSETRON HCL INJ 2 MG/ML VIAL IV STA ×2 (12:16→17:18)
[2018-05-07] MEDS ORDERED: ACETAMINOPHEN-1 EAC4 PO (12:18)
[2018-05-07] MEDS ORDERED: CHLORZOXAZONE500 MG PO (12:18)
[2018-05-07] MEDS ORDERED: PROAIR HFA INH8.5 GM INH (12:18)
[2018-05-07 12:23] LABS: BASOPHILS # (AUTO) 0.1 (0.0-0.1); BASOPHILS % 0.7 % (0.0-1.0); EOSINOPHILS # (AUTO) 0.2 (0.0-0.4); EOSINOPHILS % 1.3 % (0.0-6.0); HEMATOCRIT 39.2 % (34.2-44.1); HEMOGLOBIN 12.2 g/dL (12.0-16.0); LYMPHOCYTES # (AUTO) 4.9 (1.0-3.2); LYMPHOCYTES % 37.4 % (18.0-39.1); MEAN CORPUSCULAR HEMOGLOBIN 25.3 pg (28-32); MEAN CORPUSCULAR HGB CONC 31.1 g/dL (31-35); MEAN CORPUSCULAR VOLUME 81.2 fL (81-99); MONOCYTES # (AUTO) 0.9 (0.2-0.8); NEUTROPHILS % 53.4 % (38.7-80.0); PLATELET COUNT 369 x10e3/uL (140-360); RED BLOOD COUNT 4.83 x10e6/uL (3.6-5.1); RED CELL DISTRIBUTION WIDTH 17.1 % (11.7-14.4)
[2018-05-07 12:34] LABS: INR 0.91; PARTIAL THROMBOPLASTIN TIME 29.4 seconds (23.8-35.5); PROTHROMBIN TIME 13.1 seconds (11.9-14.5)
[2018-05-07 12:38] LABS: ALANINE AMINOTRANSFERASE 19 IU/L (0-55); ALBUMIN 3.1 g/dL (3.5-5.0); ALKALINE PHOSPHATASE 120 IU/L (40-150); AMYLASE 66 U/L (25-125); ANION GAP 12.8 mmol/L (8-16); BLOOD UREA NITROGEN 5 mg/dL (7-26); BUN/CREATININE RATIO 7 (6-25); CARBON DIOXIDE 25 mmol/L (22-29); CHLORIDE 107 mmol/L (98-107); CREATINE KINASE 24 IU/L (29-168); CREATININE, SERUM 0.75 mg/dL (0.57-1.11); EST GLOMERULAR FILTRATION RATE > 60 ML/MIN (60-); GLUCOSE 102 mg/dL (74-118); LIPASE 59 U/L (8-78); SODIUM 142 mmol/L (136-145)
[2018-05-07 12:40] LABS: POTASSIUM 2.8 mmol/L (3.5-5.1)
--- NOTE | 2018-05-07 12:56 | Diagnostic Imaging Report ---
EXAM: XR CHEST 1 VIEW DATE: 05/07/2018 12:16 PM INDICATION: Weakness, pain COMPARISON: 02/13/2018, no report available Limitations: Underpenetration and body habitus limited evaluation. FINDINGS: Lines and Tubes: None Heart and Mediastinum: No acute cardiomediastinal findings. Lungs and Pleura: No significant pleural effusion, pneumothorax, or focal consolidation. Bones and Soft Tissues: No acute findings. IMPRESSION: 1. Within limitations, no acute findings. Signed by: Dr. Matt Em MD on 05/07/2018 12:53 PM
[2018-05-07] MEDS ORDERED: POTASSIUM CHLORIDE 20MEQ/100ML 200 ML IV ONE (13:30)
[2018-05-07] MEDS ORDERED: POTASSIUM CHLORIDE 20 MEQ TAB CR PO NR (13:30)
[2018-05-07] MEDS ORDERED: SODIUM CHLORIDE 0.9% 500ML 500 ML IV ONE (16:00)
--- NOTE | 2018-05-07 16:05 | Diagnostic Imaging Report ---
EXAM: CT of the abdomen and pelvis WITHOUT contrast HISTORY: RUQ abdominal pain with diarrhea, reported COPD, BOOP, history of lung removal, contrast allergy COMPARISON: None available. TECHNIQUE: The abdomen and pelvis were scanned utilizing a multidetector helical scanner. Coronal and sagittal reformats are available. PROTOCOL: Routine IV CONTRAST: None, which limits sensitivity and specificity of evaluation of the soft tissues and vascular structures. ORAL CONTRAST: Small amount of radiopaque density within the distal esophagus and proximal stomach. RADIATION DOSE: Total DLP: 692.02 mGy*cm Estimated effective dose: (DLP x 0.015 x size factor) Dose modulation, iterative reconstruction, and/or weight based adjustment of the mA/kV was utilized to reduce the radiation dose to as low as reasonably achievable. COMPLICATIONS: None FINDINGS: LOWER THORAX: No pneumonia or pulmonary edema at the visualized lung bases. No pleural effusion. Incidentally, a subtle 2 mm right lower lobe nodule (series 2 image 3). HEPATOBILIARY: No definite focal hepatic lesions. No biliary ductal dilatation. The gallbladder is not visualized, correlate for prior cholecystectomy. SPLEEN: No splenomegaly. PANCREAS: No focal masses or ductal dilatation. ADRENALS: No discrete adrenal nodule. KIDNEYS/URETERS: No hydronephrosis, stones, or solid mass lesion identified. PELVIC ORGANS/BLADDER: The visualized pelvic organs appear unremarkable. PERITONEUM / RETROPERITONEUM: No free air or fluid. GI TRACT: On limited evaluation of the gastrointestinal tract, no dilation or wall thickening identified. The stomach is partially decompressed, which limits evaluation. No appendix is visible, but there are no pericecal inflammatory changes to suggest acute appendicitis. LYMPH NODES: No pathologically enlarged lymph nodes. VESSELS: Diffuse scattered atherosclerotic vascular calcifications. BONES: No aggressive osseous lesion or acute fracture. SOFT TISSUES: Multiple ossifications within the superficial gluteal adipose tissue, compatible with injection granulomas versus chronic fat necrosis. IMPRESSION: 1. No acute CT abnormality. 2. Atherosclerosis. 3. Incidental 2 mm right lower lobe pulmonary nodule, if this patient is at high risk for malignancy such as a known malignancy or significant smoking history, CT of the chest without contrast in 12 months to assess for stability. Signed by: Dr. Pan Castillo D.O., M.M.M. on 05/07/2018 4:02 PM
--- OUTSIDE RECORDS SUMMARY | 2018-05-18 11:09 | XMS REPORT | Continuity of Care Document ---
Author Author [facility] Interface Address Unknown Phone Unavailable Problems Problem Status Onset Date Classification Date Reported Comments Source Smoker Active Problem 05/12/2017 Christina Paulino Hypercholesteremia Active Problem 05/12/2017 Christina Paulino Essential hypertension Active Problem 05/12/2017 Christina Paulino Varicose veins of lower extremities with other complications Active Problem 05/12/2017 Christina Paulino Dizziness Active Problem 05/12/2017 Christina Paulino Venous insufficiency Active Problem 05/12/2017 Christina Paulino Non morbid obesity due to excess calories Active Problem 05/12/2017 Christina Paulino Lymphedema Active Diagnosis 05/12/2017 Christina Paulino Nonrheumatic tricuspid valve disorder Active Problem 05/12/2017 Christina Paulino COPD Active Problem 05/12/2017 Christina Paulino PVC Active Problem 05/12/2017 Christina Paulino Nonrheumatic mitral insufficiency Active Problem 05/12/2017 Christina Paulino Fibromyalgia Active Problem 05/12/2017 Christina Paulino Lower extremity edema Active Diagnosis 05/12/2017 Christina Paulino Hypokalemia Active Problem 05/12/2017 Christina Paulino Medications Medication Details Route Status Patient Instructions Ordering Provider Order Date Source Spironolactone 1 tablet Orally Active 25 MG Orally daily Yuridi 11/14/2015 Christina Paulino Potassium Chloride 1 capsule Orally Active 10 MEQ Orally Once a day Lora 11/14/2015 Christina Paulino Hydrochlorothiazide 1 tablet Orally Active 50 MG Orally Once a day Lora Paulino ProAir HFA 2 puffs as needed Inhalation Active 108 (90 Base) MCG/ACT Inhalation every 4 hrs Lora Paulino Estradiol 1 tablet Orally Active 1 MG Orally Once a day Lora Paulino Gabapentin 1 tablet Orally Active 800 MG Orally Three times a day Lora Paulino Lyrica 1 capsule Orally Active 200 MG Orally Twice a day Jarretmary kay Wheatmariahmary kay Spiriva HandiHaler 1 capsule Inhalation Active 18 MCG Inhalation Once a day Jarretmary kay [place] Nexium 1 capsule Orally Active 40 MG Orally Once a day Jarretmary kay [place] Skelaxin 1 tablet Orally Active 800 MG Orally Three times a day Jarretmary kay [place] Tessalon Perles 1 capsule as needed Orally Active 100 MG Orally Three times a day Jarretmary kay [place] Singulair 1 tablet in the evening Orally Active 10 MG Orally Once a day Jarretmary kay [place] Pepcid 1 tablet Orally Active 40 mg Orally twice a day (bid) Jarretmary kay Wheathsawn Reglan 1 tablet Orally Active 10 mg Orally three times a day (tid) Jarretmary kay Christina Wheatshawn Metoprolol Succinate ER 1 tablet Orally Active 50 MG Orally Once a day aJrretmary kay [place] Symbicort 2 puffs Inhalation Active 160-4.5 MCG/ACT Inhalation Twice a day Jarretmary kay [place] Elavil 1 tablet by mouth Active 50 mg by mouth three times a day ([facility] [place] Hydrochlorothiazide 1 tablet Orally Active 25 MG Orally [facility] Christina Wheat[place]awn Chantix 1 tablet Orally Active 1 MG Orally Twice a day [facility] [place] PredniSONE 1 tablet with food or milk Orally Active 20 MG Orally Once a day Jarretmary kay Christina Gilliam Lora Compazine not defined Orally Active 10 mg Orally every 8 [facility] [place] Lasix 1 tablet Orally Active 20 MG Orally Once a day Jarretmary kay Christina Gilliam Lora Allergies, Adverse Reactions, Alerts Substance Category Reaction Severity Reaction type Status Date Reported Comments Source Iodine IV Adverse Reaction rash Adverse Reaction Active 11/14/2015 Christina Paulino Penicillin Adverse Reaction Info Not Available Adverse Reaction Active 11/14/2015 Christina Paulino Pravastatin Sodium Adverse Reaction Cramps Adverse Reaction Active 11/14/2015 Christina Paulino Immunizations Immunization Date Given Site Status Last Updated Comments Source Results Order Name Results Value Reference Range Date Interpretation Comments Source Vital Signs Vital Sign Value Date Comments Source Weight 198 11/14/2015 Mohamed O Jeroudi Height 63 11/14/2015 Mohamed O Jeroudi Temperature Oral (F) 96.1 F 11/14/2015 Mohamed O Jeroudi Heart Rate 90 11/14/2015 Mohamed O Jeroudi Diastolic (mm Hg) 86 11/14/2015 Mohamed O Jeroudi Systolic (mm Hg) 120 11/14/2015 Mohamed O Jeroudi Weight 204 10/29/2015 Mohamed O Jeroudi Height 63 10/29/2015 Mohamed O Jeroudi Temperature Oral (F) 96.3 F 10/29/2015 Mohamed O Jeroudi Heart Rate 90 10/29/2015 Mohamed O Jeroudi Diastolic (mm Hg) 64 10/29/2015 Mohamed O Jeroudi Systolic (mm Hg) 130 10/29/2015 Mohamed O Jeroudi Weight 208 10/09/2015 Mohamed O Jeroudi Height 63 10/09/2015 Mohamed O Jeroudi Temperature Oral (F) 97.5 F 10/09/2015 Mohamed O Jeroudi Heart Rate 90 10/09/2015 Mohamed O Jeroudi Diastolic (mm Hg) 80 10/09/2015 Mohamed O Jeroudi Systolic (mm Hg) 126 10/09/2015 Mohamed O Jeroudi Weight 196 09/10/2015 Mohamed O Jeroudi Height 63 09/10/2015 Mohamed O Jeroudi Temperature Oral (F) 97.5 F 09/10/2015 Mohamed O Jeroudi Heart Rate 93 09/10/2015 Mohamed O Jeroudi Diastolic (mm Hg) 70 09/10/2015 Mohamed O Jeroudi Systolic (mm Hg) 132 09/10/2015 Mohamed O Jeroudi Encounters Location Location Details Encounter Type Encounter Number Reason For Visit Attending Provider ADM Date DC Date Status Source Procedures Procedure Code Date Perfomer Comments Source
== END 2018-05-07 18:04 | disposition home or self-care (01) ==
LOC: ER 11:53
DX: R10.11 Right upper quadrant pain (principal); R11.2 Nausea with vomiting, unspecified; R19.7 Diarrhea, unspecified; E87.6 Hypokalemia; K52.9 Noninfective gastroenteritis and colitis, unspecified
CPT/HCPCS: 36415; 71045; 74176; 80053; 82150; 82550; 82553; 83690; 83880; 84484; 85025; 85610; 85730; 93005; 99284; J2270; J2405; J3480; J7040

== ENCOUNTER 2019-09-17 07:56 | Emergency (ER) | payer MEDICARE ==
[~2019-09-17] VITALS: Ht 160 cm; Wt 89.8 kg
[~2019-09-17 07:56] MED LIST changes: +ACETAMINOPHEN-1 EAC4 PO; +CHLORZOXAZONE500 MG PO
[2019-09-17] MEDS ORDERED: ONDANSETRON HCL INJ 2MG/ML 2ML 2 MG/ML VIAL IV STA (08:21)
[2019-09-17] MEDS ORDERED: DICYCLOMINE HCL 20 MG/2 ML VIAL IM ONE (08:30)
[2019-09-17] MEDS ORDERED: SODIUM CHLORIDE 0.9% 1000ML 1,000 ML IV STA (08:32)
[2019-09-17] MEDS ORDERED: PANTOPRAZOLE 40 MG 10ML VIAL IV STA (08:32)
[2019-09-17 08:34] LABS: BASOPHILS # (AUTO) 0.1 (0.0-0.1); BASOPHILS % 0.5 % (0.0-1.0); EOSINOPHILS # (AUTO) 0.4 (0.0-0.4); EOSINOPHILS % 3.3 % (0.0-6.0); HEMATOCRIT 42.6 % (34.2-44.1); HEMOGLOBIN 13.9 g/dL (12.0-16.0); LYMPHOCYTES # (AUTO) 4.8 (1.0-3.2); MEAN CORPUSCULAR HGB CONC 32.6 g/dL (31-35); MEAN CORPUSCULAR VOLUME 91.8 fL (81-99); MONOCYTES # (AUTO) 0.9 (0.2-0.8); MONOCYTES % 7.1 % (4.4-11.3); NEUTROPHILS # (AUTO) 6.4 (2.1-6.9); NEUTROPHILS % 50.7 % (38.7-80.0); PLATELET COUNT 404 x10e3/uL (140-360); RED BLOOD COUNT 4.64 x10e6/uL (3.6-5.1); RED CELL DISTRIBUTION WIDTH 13.4 % (11.7-14.4)
[2019-09-17 08:36] LABS: BILIRUBIN,URINE NEGATIVE (NEGATIVE); CLARITY,URINE CLEAR (CLEAR); COLOR,URINE YELLOW (YELLOW); KETONES,URINE NEGATIVE (NEGATIVE); LEUKOCYTE ESTERASE ,URINE NEGATIVE (NEGATIVE); NITRITE,URINE NEGATIVE (NEGATIVE); PROTEIN,URINE DIPSTICK NEGATIVE (NEGATIVE); URINE UROBILINOGEN 0.2 mg/dL (0.2 - 1)
[2019-09-17 08:45] LABS: BACTERIA,URINE FEW /HPF; EPITHELIAL CELLS,URINE FEW /LPF; RBC,URINE 0-5 /HPF (0-5); WBC,URINE (MAN) 0-5 /HPF (0-5)
[2019-09-17] MEDS ORDERED: DIPHENHYDRAMINE HCL INJ 50 MG/ML VIAL IV ONE (08:45)
[2019-09-17] MEDS ORDERED: METOCLOPRAMIDE HCL 10 MG/2ML VIAL IV ONE (08:45)
[2019-09-17 08:55] LABS: ALANINE AMINOTRANSFERASE 7 IU/L (0-55); ALBUMIN 3.3 g/dL (3.5-5.0); ALBUMIN/GLOBULIN RATIO 0.9 (0.8-2.0); ALKALINE PHOSPHATASE 121 IU/L (40-150); ANION GAP 16.2 mmol/L (8-16); BLOOD UREA NITROGEN < 5 mg/dL (7-26); CARBON DIOXIDE 23 mmol/L (22-29); CHLORIDE 104 mmol/L (98-107); CREATININE, SERUM 0.73 mg/dL (0.57-1.11); EST GLOMERULAR FILTRATION RATE > 60 ML/MIN (60-); GLUCOSE 106 mg/dL (74-118); LIPASE 14 U/L (8-78); MAGNESIUM 1.7 MG/DL (1.3-2.1); POTASSIUM 3.2 mmol/L (3.5-5.1); SODIUM 140 mmol/L (136-145)
[2019-09-17 08:57] LABS: BUN/CREATININE RATIO 7 (6-25)
[2019-09-17 09:13] LABS: AMPHETAMINES SCREEN,URINE POSITIVE (NEGATIVE); BENZODIAZEPINES SCREEN,URINE POSITIVE (NEGATIVE); PHENCYCLIDINE SCREEN,URINE NEGATIVE (NEGATIVE)
--- NOTE | 2019-09-17 09:26 | Diagnostic Imaging Report ---
Exam: Abdominal film with upright chest Clinical History: Nausea, vomiting, abdominal pain Comparison: CT abdomen and pelvis without contrast 06/09/2018 DISCUSSION: The lungs are clear and without focal airspace consolidation, pleural effusion, or pneumothorax. Postsurgical changes of the right upper lobe. Cardiomediastinal contour and pulmonary vasculature are within normal limits. Interval placement of an electronic stimulation device. The device body projects over the right iliac wing. Leads terminate over the left upper quadrant of the abdomen. The bowel gas pattern shows no dilated, air-filled loops of bowel. No elisha pneumoperitoneum. Gas and fecal material is noted throughout the large bowel. No mass effect or organomegaly. Amorphous right lower quadrant calcifications shown to represent soft tissue injection granulomata or fat necrosis by comparison CT. Regional skeletal structures are intact. IMPRESSION: Nonobstructive bowel gas pattern. No acute cardiopulmonary abnormality. Signed by: Dr. Oc Soto M.D. on 09/17/2019 9:23 AM
[2019-09-17 09:38] VITALS: BP 108/80
--- NOTE | 2019-09-17 10:15 | NUR ---
pt tore up prescription; pt upset that she was not being admitted; explained to pt she is dealing with a chronic condition and that he did speak with her gi dr (ning) who advised that she follow up with him on an outpatient basis; explained to pt there was no reason to admit pt; pt calls md "an idiot"; approx 1030 pt states she wants to see the dr again stating she needs an admission; nurse explained to pt what explained to her again; nurse gets who again explains to pt there is no emergency and she is dealing with a chronic condition and that dr barclay wants her to follow up with him on an outpatient basis pt states she wants him to contact dr bright as she feels she will get an admission through him explains there is no emergency and no need for an admission because this is a chronic condition pt begins to call md a "fucking idiot" and a "fucking joi" and states "he only became an er dr because the er takes anyone and he didn't have what it takes to become a specialist" and states "he has no idea what he's doing" as nurse removes iv from pt left ac pt calls nurse "as big a joi as him ()" nurse makes no response back other than to say have a nice day and walks out; nurse asks for another nurse to wheel pt out as pt demanded she be wheelchaired out romi Welch volunteers; as nabil rodríguez pt out pt extends middle finger to
--- NOTE | 2019-09-17 10:41 | NUR ---
pt refused to sign d/c form
== END 2019-09-17 10:41 | disposition home or self-care (01) ==
LOC: ER 07:56
DX: R10.84 Generalized abdominal pain (principal); I10 Essential (primary) hypertension; E11.9 Type 2 diabetes mellitus without complications; Z87.442 Personal history of urinary calculi; Z87.440 Personal history of urinary (tract) infections; Z82.49 Family history of ischemic heart disease and other diseases of the circulatory system; Z79.84 Long term (current) use of oral hypoglycemic drugs
CPT/HCPCS: 36415; 74022; 80053; 80307; 81001; 83690; 83735; 85025; 87086; 99284; C9113; J0500; J1200; J2405; J2765; J7030

== ENCOUNTER 2021-02-24 16:45 | Emergency (ER) | payer MEDICARE ==
[~2021-02-24] VITALS: Ht 167.6 cm; Wt 72.6 kg
[2021-02-24] MEDS ORDERED: CASIRIVIMAB/IMDEVIMAB 600 MG in SODIUM CHLORIDE 0.9% 250ML 250 ML IV ONE (17:30)
== END 2021-02-24 19:38 | disposition home or self-care (01) ==
LOC: ER 18:59
DX: U07.1 COVID-19 (principal); Z99.81 Dependence on supplemental oxygen; I10 Essential (primary) hypertension; M79.7 Fibromyalgia; K76.9 Liver disease, unspecified; Z85.42 Personal history of malignant neoplasm of other parts of uterus
CPT/HCPCS: 99283; J7050